=== PATIENT | male | born 1995 | race Caucasian/White ===

== ENCOUNTER 2020-06-09 18:30 | Emergency (ER) | payer SELFPAY ==
[~2020-06-09 18:30] MED LIST: CLEOCIN HCL300 MG PO; IBUPROFEN600 MG PO; KEFLEX CAP 500500 MG PO; LODINE CAP 300300 MG PO; Viscous Lidocaine2% TOP
== END 2020-06-10 05:15 | disposition home or self-care (01) ==
LOC: ER1 18:30
DX: R06.02 Shortness of breath (principal); R45.1 Restlessness and agitation
CPT/HCPCS: 99284